=== PATIENT | female | born 1990 | race Caucasian/White ===

== ENCOUNTER 2019-05-30 01:40 | Emergency (ER) | payer SELFPAY ==
[~2019-05-30] VITALS: Ht 157.5 cm; Wt 72.6 kg
--- NOTE | 2019-05-30 01:40 | NUR ---
[place] [facility] AT BEDSIDE
--- NOTE | 2019-05-30 01:40 | NUR ---
[facility]. TAKEN TO BED 2
[2019-05-30 01:47] VITALS: BP 127/78
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
[2019-05-30] MEDS ORDERED: KETOROLAC 30 MG/ML VIAL IM ONE (02:05)
--- NOTE | 2019-05-30 02:27 | NUR ---
MEDICATED PER [facility] ORDER, TOLERATED WELL.
--- NOTE | 2019-05-30 02:35 | NUR ---
PT TAKEN TO CT
--- NOTE | 2019-05-30 02:51 | NUR ---
PATIENT BROUGHT BACK TO BED FROM CT, NO INCIDENT NOTED, NO COMPLAINTS AT THIS TIME.
--- NOTE | 2019-05-30 03:45 | NUR ---
NECK BRACE REMOVED INDICATED, PATIENT TOLERATED WELL. RN AT BEDSIDE TO TRANSLATE D/C INSTRUCTIONS. PATIENT VERBALIZES UNDERSTANDING. VSS. PAIN IS RELIEVED. PENDING TRANSPORTATION HOME.
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
[2019-05-30 03:55] VITALS: BP 111/63
--- NOTE | 2019-05-30 05:10 | NUR ---
I HERE TO GLASS INSERTER PATIENT. PATIENT AMBULATED OUT OF ER, PATIENT STABLE. Addendum: 05/30/19 at 0538 by CLEMENTE NOT YOBANY, PATIENTS FAMILY MEMBER CAME TO PICK HER UP.
== END 2019-05-30 03:55 | disposition home or self-care (01) ==
LOC: MED 01:40
DX: S16.1XXA Strain of muscle, fascia and tendon at neck level, initial encounter (principal); Z98.890 Other specified postprocedural states; Y04.0XXA Assault by unarmed brawl or fight, initial encounter; Y93.89 Activity, other specified; Y92.89 Other specified places as the place of occurrence of the external cause; Y99.8 Other external cause status
CPT/HCPCS: 72125; 96372; 99284; J1885